=== PATIENT | male | born 1955 | race Caucasian/White ===

== ENCOUNTER 2017-05-17 13:40 | Inpatient (IN) | payer OTHER ==
[~2017-05-17] VITALS: Ht 177.8 cm; Wt 79.4 kg
[~2017-05-17 13:40] MED LIST: APIX5TAB PO; ENOX80DI8 SQ; KET10 PO; MONT4TAB PO; MULT1TAB64 PO; OMEP-218 PO; OMEP10CA38 PO; PER PO; WAR5 PO
[2017-05-17] MEDS ORDERED: cholesterol med (13:52)
[2017-05-17] MEDS ORDERED: bp med (13:52)
[2017-05-17] MEDS ORDERED: MONT10TA PO (13:52)
[2017-05-17] MEDS ORDERED: NS(*) 0.9% 1000 ML BAG 1,000 ML IV ONE (13:59)
[2017-05-17] MEDS ORDERED: ONDANSETRON 4 MG/2 ML VIAL IVP ONE (14:00)
[2017-05-17 14:14] LABS: PLATELET COUNT, AUTOMATED 236 K/uL (150-450)
[2017-05-17] MEDS ORDERED: IOPAMIDOL 76% 75 ML INFUS BTL 75 ML ONE (14:24)
[2017-05-17] MEDS ORDERED: NS 0.9% 50 ML VIAL 50 ML ONE (14:24)
--- NOTE | 2017-05-17 15:17 | RADIOLOGY IMAGING REPORT ---
FACILITY: [facility] PATIENT NAME: Juni Moreau : 1955 MR: [id number] V: [id number] EXAM DATE: ORDERING PHYSICIAN: ISIDRA VIVAR TECHNOLOGIST: Location: [facility] [place] Patient: Juni Moreau : 1955 Visit/Account:[id number] Date of Sevice: 05/17/2017 CT abdomen and pelvis with IV contrast Indication: Abdominal pain and bloating. Comparison: None available. . Technique: Axial CT images were obtained through the abdomen and pelvis during injection of nonioni c iodinated intravenous contrast. Reformatted coronal and sagittal images were also obtained. One of the following dose optimization techniques was utilized in the performance of this exam: Autom ated exposure control; adjustment of the mA and/or kV according to the patient's size; or use of an i terative reconstruction technique. Specific details can be referenced in the facility's radiology C T exam operational policy. Contrast: 75 ml of Isovue-370 IV contrast. Findings: Lower lung mehta: Left lower lobe does show a 3.5 mm pleural-based nodule. The right middle lobe zelaya s show 2 peripheral nodules measuring 3 mm. Mild scarring seen in right lower lobe. Lung bases otherw ise clear. Liver: No focal parenchymal abnormality of the liver. Biliary: Gallbladder appears unremarkable as well as the intra and extra hepatic biliary system. Pancreas: Normal appearance. Spleen: Normal appearance. Adrenal glands: Unremarkable. Kidneys / retroperitoneum: No evidence of nephrolithiasis or hydronephrosis. Subcentimeter hypodensit y in the inferior left kidney is too small characterize and statistically tiny cyst. No solid renal l esions. Bowel / peritoneum / mesenteries: There are multiple dilated loops of proximal small bowel without wa ll thickening or focal abnormality. There are transition the right mid abdomen without cause identifi ed. The distal small bowel is unremarkable. Sigmoid colon shows a few diverticula without pericolonic inflammation. The colon shows no other focal normality. The appendix is not visualized. Small hiatal hernia. The stomach is otherwise unremarkable. Small amount of free fluid seen in the pelvis. No fluid collections, free air or focal areas of infla mmation. Lymph node assessment: No pathologic adenopathy identified. Pelvic structures: Prostate is mildly enlarged causing impression to the urinary bladder. No other focal abnormality. The remaining pelvic structures visualized within normal limits. Vessels: No significant atherosclerotic calcifications seen throughout a nonaneurysmal abdominal aort a and branches. Musculoskeletal / Body wall: No acute or aggressive osseous abnormality. Mild degenerative changes sp ine. IMPRESSION: 1. Small bowel obstruction. The area of transition is in the right mid abdomen without cause identifi ed. Small amount of free fluid in the pelvis. 2. Sigmoid diverticulosis without radiographic indication diverticulitis. 3. Bilateral subcentimeter lung nodules. These are nonspecific and could be postinflammatory. Follow per Fleischner guidelines as described below. 4. other chronic findings as above. I called report to ISIDRA VIVAR at 05/17/2017 3:11 PM. FLEISCHNER SOCIETY FOLLOW-UP GUIDELINES FOR NEWLY DETECTED INCIDENTAL NODULES IN PERSONS 35 YEARS OF AGE OR OLDER. *THESE RECOMMENDATIONS DO NOT APPLY TO LUNG CANCER SCREENING, PATIENTS WITH IMMUNOSUPPRESSION , OR PA TIENTS WITH KNOWN PRIMARY MALIGNANCY. MULTIPLE SOLID NODULES If largest nodule size is less than 6 mm: Low risk patient - no follow up needed High risk patient - Optional CT at 12 months. If largest nodule size is 6-8 mm: Low risk patient - follow up CT at 3-6 months, then consider CT at 18-24 months if no change. High risk patient - follow up CT at 3-6 months, then CT at 18-24 months if no change. If largest nodule size is greater than 8 mm: Low risk patient - follow up CT at 3-6 months, then consider CT at 18-24 months High risk patient - follow up CT at 3-6 months, then at 18-24 months LOW RISK PATIENT: Minimal or absent history of tobacco use and of other known risk factors.HIGH RISK PATIENT: Tobacco use, family history of lung cancer, upper pulmonary lobe location of nodule, presenc e of emphysema, pulmonary fibrosis, older age. Lalo H, Leigh Ann DP, Naseem JM, et al. Guidelines for Management of Incidental Pulmonary Nodules Dete cted on CT Images: From the Fleischner Society 2017. Radiology. Report Dictated By: Darrian Green at 05/17/2017 3:02 PM Report E-Signed By: Darrian Green at 05/17/2017 3:11 PM WSN:[id number]
--- NOTE | 2017-05-17 15:20 | ER Report ---
History and Physical Time Seen By MD: 13:45 Hx. of Stated Complaint: pt states monday night started with n/v and slight diarrhea. Notes bloating HPI/ROS CHIEF COMPLAINT: Vomiting, abdominal pain HISTORY OF PRESENT ILLNESS: Patient is a 61-year-old male who presents the ED with complaint of vomiting and abdominal pain for the past 3 days. He states that initially he had some small amounts of diarrhea but has not had a stool for over 24 hours now. He states that he has not noted any black or bloody bowel movements or emesis. He states that he has previous abdominal surgeries of an appendectomy and inguinal hernia repair. Patient denies any fever. He states that he has noted that his abdomen feels more bloated now. REVIEW OF SYSTEMS: Constitutional: No fever, no chills. Eyes: No discharge. ENT: No sore throat. Cardiovascular: No chest pain, no palpitations. Respiratory: No cough, no shortness of breath. Gastrointestinal: See history of present illness. Genitourinary: No hematuria. Musculoskeletal: No back pain. Skin: No rashes. Neurological: No headache. Allergies: Coded Allergies: morphine (Verified Allergy, Intermediate, REDNESS, SEVERE NAUSEA, 05/17/17) Home Meds Active Scripts Apixaban (ELIQUIS) 5 Mg Tablet, 5 MG PO BID, #60 TAB 11 Refills Take 5 mg twice daily Prov:JESUS ALBERTO CRISTINA LOCKER ROOM CLERK-BC, ONC 07/19/16 Reported Medications [cholesterol med] No Conflict Check 05/17/17 Montelukast Sodium (SINGULAIR) 10 Mg Tablet, 1 TAB PO QDAY, TAB 05/17/17 [bp med] No Conflict Check 05/17/17 Discontinued Reported Medications Multivitamin (MULTI VITAMIN DAILY) 1 Each Tablet, 1 EACH PO DAILY 07/25/14 Omeprazole (PRILOSEC) 10 Mg Capsule., 10 MG PO PRN Y for GAS/HEARTBURN 06/13/14 Reviewed Nurses Notes: Yes Old Medical Records Reviewed: Yes Hx Smoking: No Smoking Status: Never Smoker Constitutional Vital Sign - Last 24 Hours 05/17/17 05/17/17 05/17/17 05/17/17 13:46 13:47 14:00 14:10 Temp 99.1 Pulse 66 61 Resp 22 B/P (MAP) 157/82 157/82 (107) 153/87 (109) Pulse Ox 99 98 O2 Delivery Room Air 05/17/17 05/17/17 14:30 15:00 B/P (MAP) 150/85 (106) 149/81 (103) Intake and Output 05/17/17 05/17/17 05/18/17 15:00 23:00 07:00 Intake Total 1000 ml Balance 1000 ml Physical Exam General Appearance: The patient is alert, has no immediate need for airway protection and no signs of toxicity. Patient appears to be no acute distress. Eyes: Pupils equal and round no pallor or injection. ENT, Mouth: Mucous membranes are moist. Respiratory: There are no retractions, lungs are clear to auscultation. Cardiovascular: Regular rate and rhythm. Gastrointestinal: There is right lower quadrant, suprapubic, left lower quadrant tenderness with palpation. Absent bowel sounds in all 4 quadrants. No rebound or guarding is present. Skin: Warm and dry, no rashes. Musculoskeletal: Neck is supple non tender. Extremities are nontender, nonswollen and have full range of motion. DIFFERENTIAL DIAGNOSIS: After history and physical exam differential diagnosis was considered for abdominal pain including but not limited to appendicitis, cholecystitis, gastritis and urinary tract infection. Medical Decision Making Data Points Result Diagram: 05/17/17 1401 05/17/17 1401 Laboratory Hematology Test 05/17/17 14:01 05/17/17 14:19 Red Blood Count 5.33 M/uL (4.00-5.60) Mean Corpuscular Volume 90.0 fL (80.0-96.0) Mean Corpuscular Hemoglobin 31.8 pg (26.0-33.0) Mean Corpuscular Hemoglobin Concent 35.4 g/dL (32.0-36.0) Red Cell Distribution Width 12.9 % (11.5-14.5) Mean Platelet Volume 7.5 fL (7.2-11.1) Neutrophils (%) (Auto) 76.4 % (39.4-72.5) Lymphocytes (%) (Auto) 11.6 % (17.6-49.6) Monocytes (%) (Auto) 10.3 % (4.1-12.4) Eosinophils (%) (Auto) 0.7 % (0.4-6.7) Basophils (%) (Auto) 1.0 % (0.3-1.4) Nucleated RBC Relative Count (auto) 0.0 /100WBC Neutrophils # (Auto) 6.8 K/uL (2.0-7.4) Lymphocytes # (Auto) 1.0 K/uL (1.3-3.6) Monocytes # (Auto) 0.9 K/uL (0.3-1.0) Eosinophils # (Auto) 0.1 K/uL (0.0-0.5) Basophils # (Auto) 0.1 K/uL (0.0-0.1) Nucleated RBC Absolute Count (auto) 0.00 K/uL Sodium Level 130 mmol/L (137-145) Potassium Level 3.6 mmol/L (3.5-5.0) Chloride Level 95 mmol/L (98-107) Carbon Dioxide Level 22 mmol/L (22-30) Blood Urea Nitrogen 13 mg/dl (9-21) Creatinine 1.00 mg/dl (0.66-1.25) Glomerular Filtration Rate Calc > 60.0 Random Glucose 121 mg/dl (75-110) Lactate 1.8 mmol/L (0.7-2.1) Calcium Level 9.8 mg/dl (8.4-10.2) Total Bilirubin 2.6 mg/dl (0.2-1.3) Aspartate Amino Transf (AST/SGOT) 21 U/L (0-35) Alanine Aminotransferase (ALT/SGPT) 40 U/L (0-56) Alkaline Phosphatase 75 U/L (0-126) Total Protein 7.3 gm/dl (6.3-8.2) Albumin 4.2 g/dl (3.5-5.0) Lipase 134 U/L (23-300) Urine Color Yellow Urine Clarity Clear Urine pH 8.0 pH (4.8-9.5) Urine Specific Costa 1.016 Urine Protein Negative mg/dL (NEGATIVE) Urine Glucose (UA) Negative mg/dL (NEGATIVE) Urine Ketones 80 mg/dL (NEGATIVE) Urine Blood Negative (NEGATIVE) Urine Nitrite Negative (NEGATIVE) Urine Bilirubin Negative (NEGATIVE) Urine Urobilinogen 4.0 mg/dL (0.2-1.9) Urine Leukocyte Esterase Negative (NEGATIVE) Urine RBC 1 /HPF (0-2/HPF) Urine WBC <1 /HPF (0-5/HPF) Urine Squamous Epithelial Cells None /LPF (</=FEW) Urine Bacteria Few /HPF (NONE-FEW) Urine Mucus None /HPF (NONE-FEW) Chemistry Test 05/17/17 14:01 05/17/17 14:19 White Blood Count 8.9 k/uL (4.5-11.0) Red Blood Count 5.33 M/uL (4.00-5.60) Hemoglobin 17.0 g/dL (14.0-18.0) Hematocrit 48.0 % (42.0-52.0) Mean Corpuscular Volume 90.0 fL (80.0-96.0) Mean Corpuscular Hemoglobin 31.8 pg (26.0-33.0) Mean Corpuscular Hemoglobin Concent 35.4 g/dL (32.0-36.0) Red Cell Distribution Width 12.9 % (11.5-14.5) Platelet Count 236 K/uL (150-450) Mean Platelet Volume 7.5 fL (7.2-11.1) Neutrophils (%) (Auto) 76.4 % (39.4-72.5) Lymphocytes (%) (Auto) 11.6 % (17.6-49.6) Monocytes (%) (Auto) 10.3 % (4.1-12.4) Eosinophils (%) (Auto) 0.7 % (0.4-6.7) Basophils (%) (Auto) 1.0 % (0.3-1.4) Nucleated RBC Relative Count (auto) 0.0 /100WBC Neutrophils # (Auto) 6.8 K/uL (2.0-7.4) Lymphocytes # (Auto) 1.0 K/uL (1.3-3.6) Monocytes # (Auto) 0.9 K/uL (0.3-1.0) Eosinophils # (Auto) 0.1 K/uL (0.0-0.5) Basophils # (Auto) 0.1 K/uL (0.0-0.1) Nucleated RBC Absolute Count (auto) 0.00 K/uL Glomerular Filtration Rate Calc > 60.0 Lactate 1.8 mmol/L (0.7-2.1) Calcium Level 9.8 mg/dl (8.4-10.2) Total Bilirubin 2.6 mg/dl (0.2-1.3) Aspartate Amino Transf (AST/SGOT) 21 U/L (0-35) Alanine Aminotransferase (ALT/SGPT) 40 U/L (0-56) Alkaline Phosphatase 75 U/L (0-126) Total Protein 7.3 gm/dl (6.3-8.2) Albumin 4.2 g/dl (3.5-5.0) Lipase 134 U/L (23-300) Urine Color Yellow Urine Clarity Clear Urine pH 8.0 pH (4.8-9.5) Urine Specific Costa 1.016 Urine Protein Negative mg/dL (NEGATIVE) Urine Glucose (UA) Negative mg/dL (NEGATIVE) Urine Ketones 80 mg/dL (NEGATIVE) Urine Blood Negative (NEGATIVE) Urine Nitrite Negative (NEGATIVE) Urine Bilirubin Negative (NEGATIVE) Urine Urobilinogen 4.0 mg/dL (0.2-1.9) Urine Leukocyte Esterase Negative (NEGATIVE) Urine RBC 1 /HPF (0-2/HPF) Urine WBC <1 /HPF (0-5/HPF) Urine Squamous Epithelial Cells None /LPF (</=FEW) Urine Bacteria Few /HPF (NONE-FEW) Urine Mucus None /HPF (NONE-FEW) Urinalysis Test 05/17/17 14:19 Urine Color Yellow Urine Clarity Clear Urine pH 8.0 pH (4.8-9.5) Urine Specific Costa 1.016 Urine Protein Negative mg/dL (NEGATIVE) Urine Glucose (UA) Negative mg/dL (NEGATIVE) Urine Ketones 80 mg/dL (NEGATIVE) Urine Blood Negative (NEGATIVE) Urine Nitrite Negative (NEGATIVE) Urine Bilirubin Negative (NEGATIVE) Urine Urobilinogen 4.0 mg/dL (0.2-1.9) Urine Leukocyte Esterase Negative (NEGATIVE) Urine RBC 1 /HPF (0-2/HPF) Urine WBC <1 /HPF (0-5/HPF) Urine Squamous Epithelial Cells None /LPF (</=FEW) Urine Bacteria Few /HPF (NONE-FEW) Urine Mucus None /HPF (NONE-FEW) EKG/Imaging Imaging CT Abdomen/Pelvis: IMPRESSION: 1. Small bowel obstruction. The area of transition is in the right mid abdomen without cause identified. Small amount of free fluid in the pelvis. 2. Sigmoid diverticulosis without radiographic indication diverticulitis. 3. Bilateral subcentimeter lung nodules. These are nonspecific and could be postinflammatory. Follow per Fleischner guidelines as described below. 4. other chronic findings as above. ED Course/Re-evaluation Clinical Indication for ER IV: Hydration ED Course We will obtain labs and CT imaging of abdomen/pelvis. Patient given 1 L normal saline bolus and 4 mg IV Zofran. 05/17/2017 3:37:28 pm - and imaging with patient. It appears that he does have an early small bowel obstruction of the right mid abdomen. He states that he is feeling better after the Zofran. Discussed patient with Dr. Chaudhry, surgeon, will accept patient under his care. Decision to Disposition Date: May 17, 2017 Decision to Disposition Time: 15:39 Depart Departure Latest Vital Signs Vital Signs Date Time Temp Pulse Resp B/P (MAP) Pulse Ox O2 Delivery O2 Flow Rate FiO2 05/17/17 15:00 149/81 (103) 05/17/17 14:10 61 98 05/17/17 13:46 99.1 22 Room Air Impression: Primary Impression: SBO (small bowel obstruction) Condition: Improved Disposition: Admitted from ER Referrals: MEGAN MCBRIDE (PCP) Consult Note: Dr. Conde, Surgery [facility],ISIDRA Ray PAAlexandrC May 17, 2017 15:20
[2017-05-17] MEDS ORDERED: FLUSH 10 ML SYR IVP PRN (15:25)
[2017-05-17] MEDS ORDERED: NALOXONE HCL 0.4 MG/ML VIAL IVP PRN (15:25)
[2017-05-17] MEDS ORDERED: ONDANSETRON 4 MG/2 ML VIAL IVP PRN (15:25)
[2017-05-17] MEDS ORDERED: PROMETHAZINE 25 MG/ML 1 ML AMP IVP PRN (15:25)
[2017-05-17] MEDS ORDERED: HYDROmorphone PCA 6 MG/30 ML IV PRN (15:25)
[2017-05-17] MEDS ORDERED: LORazepam 2 MG/ML VIAL IVP ONE (15:35)
--- NOTE | 2017-05-17 17:01 | RADIOLOGY IMAGING REPORT ---
[place] [facility] [place]: Juni Moreau : 1955 MR: [id number] V: [id number] EXAM DATE: ORDERING PHYSICIAN: ISIDRA VIVAR TECHNOLOGIST: [place] [facility] [place] Juni Moreau : 1955 Visit/Account:[id number] Date of Sevice: 05/17/2017 Exam type: CHEST SINGLE AP History: NG tuvbe placement Comparison: None. Findings: There has been placement of an NG tube. The tube appears looped within the gastric fundus and body. The distalmost portion of the tube is not well seen although appears to be along the superior aspect of the gastric fundus tThe lungs are free of consolidation. The cardiac silhouette is normal. IMPRESSION: 1. NG tube is looped within the gastric fundus and body. The distalmost portion is not ideally seen although appears to be along the superior aspect of the gastric fundus Report Dictated By: Tori Dickson MD at 05/17/2017 4:53 PM Report E-Signed By: Tori Dickson MD at 05/17/2017 4:55 PM WSN:[id number]
--- NOTE | 2017-05-17 17:01 | RADIOLOGY IMAGING REPORT ---
FACILITY: [facility] PATIENT NAME: Juni Moreau : 1955 MR: [id number] V: [id number] EXAM DATE: ORDERING PHYSICIAN: GEORGE PRASAD TECHNOLOGIST: Location: [facility] Patient: Juni Moreau : 1955 Visit/Account:[id number] Date of Sevice: 05/17/2017 Exam type: KUB SINGLE VIEW ABDOMEN History: SBO, NG tube placement Comparison: CT performed earlier in the day. Findings: There is air seen throughout numerous dilated loops of small bowel in the midabdomen contrast identif ied in the renal collecting systems and bladder from today's CT scan. The NG tube is not seen. Plea se see today's chest radiograph dictation IMPRESSION: 1. Image dilated loops of small bowel throughout the abdomen consistent with the history of small gunner wel obstruction NG tube is not identified. Please see today's chest radiograph dictation Report Dictated By: Tori Dickson MD at 05/17/2017 4:55 PM Report E-Signed By: Tori Dickson MD at 05/17/2017 4:57 PM WSN:[email or web address]
[2017-05-17] MEDS ORDERED: LISI30TA49 PO (17:09)
[2017-05-17] MEDS ORDERED: ATOR10TA65 PO (17:09)
[2017-05-17 17:12] VITALS: BP 151/92
[2017-05-17] MEDS: NS(*) 0.9% 1000 ML BAG 1,000 ML IV PRN (18:19)
[2017-05-17 18:47] VITALS: BP 151/90
[2017-05-17] MEDS ORDERED: BENZOCAINE/MENTHOL 1 EACH LOZG PO PRN (18:50)
--- NOTE | 2017-05-17 19:24 | Gen Surgery History & Physical ---
History of Present Illness Chief Complaint Abdominal pain, nausea, vomiting History of Present Illness 61-year-old gentleman presents to the emergency room with a three-day history of intermittent but worsening abdominal pain with nausea and vomiting and bloating. The pain started 3 days ago with nausea and vomiting that occurred after eating but then seemed to get better overnight only to recur the next day followed by some improvement and then today it seemed to get worse once again prompting him to come into the emergency department. His last flatus was yesterday morning but then he mentions he possibly had 2 episodes of flatus overnight last night. His last bowel movement was yesterday morning and was only a small liquid stool. No blood in his stool. He came into the emergency room where a CT scan was consistent with a small bowel obstruction. He's never had a small bowel obstruction before. He has had an open appendectomy as well as a right inguinal hernia repair but no other abdominal surgeries. He has never had these sort of symptoms prior to 3 days ago. History Problems: (1) History of DVT (deep vein thrombosis) Status: Chronic (2) Hypertension Status: Chronic (3) Hyperlipidemia Status: Chronic (4) Factor 5 Leiden mutation, heterozygous Status: Acute (5) H/O knee surgery Status: Acute (6) History of hernia repair Status: Acute (7) History of appendectomy Status: Acute (8) FH: lung cancer (9) Family history of blood clots (10) Family history of pulmonary embolism Home Meds Active Scripts Apixaban (ELIQUIS) 5 Mg Tablet, 5 MG PO BID, #60 TAB 11 Refills Take 5 mg twice daily Prov:JESUS ALBERTO CRISTINA OPERATIONS ADVISOR-BC, ONC 07/19/16 Reported Medications Atorvastatin Calcium (ATORVASTATIN CALCIUM) 10 Mg Tablet, 1 TAB PO QDAY, TAB 05/17/17 Lisinopril (LISINOPRIL) 30 Mg Tablet, 1 TAB PO QDAY 05/17/17 Discontinued Reported Medications Montelukast Sodium (SINGULAIR) 10 Mg Tablet, 1 TAB PO QDAY, TAB 05/17/17 Multivitamin (MULTI VITAMIN DAILY) 1 Each Tablet, 1 EACH PO DAILY 07/25/14 Omeprazole (PRILOSEC) 10 Mg Capsule.dr, 10 MG PO PRN Y for GAS/HEARTBURN 06/13/14 Allergies: Coded Allergies: morphine (Verified Allergy, Intermediate, REDNESS, SEVERE NAUSEA, 1/3/18) Patient History: Blood clots SISTER FH: lung cancer FATHER, Onset:44 MOTHER, Onset:68 BROTHER Pleural effusion Pulmonary embolism BROTHER Review of Systems All Systems Reviewed/Normal: Yes, Except as Noted Gastrointestinal: Nausea, Vomiting, Abdominal Pain Exam General Appearance: Alert, Awake, No Acute Distress, Afebrile Neuro: No Gross deficits Eyes: PERRLA GI: Other (soft mild periumbilical tenderness to palpation. Mildly distended. Somewhat tympanic to percussion. No peritoneal signs. No palpable mass or bulge. ) Extremities: Warm, Perfused Medical Decision Making Data Points Result Diagram: 05/17/17 1401 05/17/17 1401 Assessment and Plan Problems: (1) SBO (small bowel obstruction) Status: Acute Assessment & Plan: 05/17/17: Will admit to the hospital for further management of this small bowel obstruction. Given his previous history of abdominal surgeries this is likely due to intra-abdominal adhesions although he has not had a extensive surgical history so other etiologies must be considered. We'll start with conservative management including bowel rest and NG tube decompression with IV fluids for hydration. If he fails to improve after at least 48 hours of conservative management then we will need to consider surgical exploration. We will have him on therapeutic Lovenox, 80 mg subcutaneously twice a day, given his previous history of of DVT and his factor V Leiden mutation. We will need to stop this if surgery is contemplated. We'll use PPI for GI prophylaxis. To the patient the typical nature of small bowel obstructions and this plan in detail. His questions been answered. He seems agreeable with this plan. We will use apical lozenges and ice chips to help soothe his mouth and throat due to the NG tube causing irritation. Condition Stable Time Spent: < 30 min Venous Thromboembolism VTE Risk Physician Assess for VTE Risk: Yes Patient's VTE Risk: High VTE Diagnostic Test 2 Days Prior to Admit: No Antithrombotics Is Pt On Any Antithrombotics?: Yes GEORGE PRASAD MD May 17, 2017 19:24
[2017-05-17 23:31] VITALS: BP 157/94
[2017-05-18] MEDS: NS(*) 0.9% 1000 ML BAG 1,000 ML IV PRN ×2 (03:05→19:40)
[2017-05-18 03:07] VITALS: BP 161/86
--- NOTE | 2017-05-18 05:20 | General Surgery Progress Note ---
Subjective Progress Notes Subjective Feeling better. No flatus or BM. Not much pain. Main complaint is irritation from the NG tube. Physical Exam Vital Signs Date Time Temp Pulse Resp B/P (MAP) Pulse Ox O2 Delivery O2 Flow Rate FiO2 05/18/17 04:45 16 97 05/18/17 03:07 98.9 70 161/86 (111) Nasal Cannula 1.0 General Appearance: Alert, Awake, No Acute Distress, Afebrile GI: Soft and Non-Tender (Mild distension, less tympany) Extremities: Warm, Perfused Result Diagram: 05/17/17 1401 05/17/17 1401 Assessment and Plan Problems: (1) SBO (small bowel obstruction) Status: Acute Assessment & Plan: 05/17/17: Will admit to the hospital for further management of this small bowel obstruction. Given his previous history of abdominal surgeries this is likely due to intra-abdominal adhesions although he has not had a extensive surgical history so other etiologies must be considered. We'll start with conservative management including bowel rest and NG tube decompression with IV fluids for hydration. If he fails to improve after at least 48 hours of conservative management then we will need to consider surgical exploration. We will have him on therapeutic Lovenox, 80 mg subcutaneously twice a day, given his previous history of of DVT and his factor V Leiden mutation. We will need to stop this if surgery is contemplated. We'll use PPI for GI prophylaxis. To the patient the typical nature of small bowel obstructions and this plan in detail. His questions been answered. He seems agreeable with this plan. We will use apical lozenges and ice chips to help soothe his mouth and throat due to the NG tube causing irritation. 05/18/17: Still no flatus. KUB with diffusely dilated small bowel but I can see gas throughout colon, unlike on yesterday's KUB. NG isn't putting out too much , a couple hundred cc's in 24 hours. Continue bowel rest and NG tube decompression. Will await flatus and will recheck KUB in the morning. Condition Stable. Time Spent: < 30 min Exam Sepsis Risk: No Definite Risk GEORGE PRASAD MD May 18, 2017 05:19
--- NOTE | 2017-05-18 05:59 | RADIOLOGY IMAGING REPORT ---
FACILITY: [facility] PATIENT NAME: Juni Moreau : 1955 MR: [id number] V: [id number] EXAM DATE: ORDERING PHYSICIAN: GEORGE PRASAD TECHNOLOGIST: Location: [facility] Patient: Juni Moreau : 1955 Visit/Account:[id number] Date of Sevice: 05/18/2017 KUB SINGLE VIEW ABDOMEN HISTORY: SBO Single KUB. Comparison made to previous study of 05/17/2017 Dilated loops of small bowel throughout the abdomen compatible with small bowel obstruction. Degree o f visualization of the dilated air-filled small bowel loops increasing when compared to the previous study of 05/17/2017. Contrast within the bladder from previous contrast injection. Bony structures unremarkable IMPRESSION: 1. Small bowel obstruction. Report Dictated By: Chad Tucker MD at 05/18/2017 5:54 AM Report E-Signed By: Chad Tucker MD at 05/18/2017 5:55 AM WSN:[id number]
[2017-05-18 06:18] LABS: PLATELET COUNT, AUTOMATED 191 K/uL (150-450)
[2017-05-18 08:41] VITALS: Ht 177.8 cm; Wt 79.4 kg
[2017-05-18 08:44] VITALS: BP 139/82
[2017-05-18] MEDS: ENOXAPARIN 100 MG/ML SYR SC SCH ×2 (08:47→20:44)
[2017-05-18] MEDS: PANTOPRAZOLE SOD 40 MG IV VIAL IVP SCH (08:48)
[2017-05-18 12:00] VITALS: BP 155/92
[2017-05-18 15:30] VITALS: BP 135/83
[2017-05-18 19:09] VITALS: BP 151/87
[2017-05-18 23:15] VITALS: BP 156/87
[2017-05-19 03:28] VITALS: BP 153/85
[2017-05-19] MEDS: NS(*) 0.9% 1000 ML BAG 1,000 ML IV PRN (04:45)
[2017-05-19 06:23] LABS: PLATELET COUNT, AUTOMATED 188 K/uL (150-450)
[2017-05-19] MEDS ORDERED: NS(*) 0.9% 1000 ML BAG 1,000 ML IV PRN (07:03)
[2017-05-19 07:06] VITALS: BP 137/88
--- NOTE | 2017-05-19 07:08 | General Surgery Progress Note ---
Subjective Progress Notes Subjective No complaints. Passing lots of flatus. No abdominal pain or bloating. Feels hungry. Had headache overnight but now better. Physical Exam Vital Signs Date Time Temp Pulse Resp B/P (MAP) Pulse Ox O2 Delivery O2 Flow Rate FiO2 05/19/17 03:29 16 92 05/19/17 03:28 99.0 73 153/85 (107) Room Air 05/18/17 15:30 1.0 General Appearance: Alert, Awake, No Acute Distress, Afebrile GI: Soft and Non-Tender Extremities: Warm, Perfused Result Diagram: 05/19/17 0534 05/19/17 0534 Assessment and Plan Problems: (1) SBO (small bowel obstruction) Status: Acute Assessment & Plan: 05/17/17: Will admit to the hospital for further management of this small bowel obstruction. Given his previous history of abdominal surgeries this is likely due to intra-abdominal adhesions although he has not had a extensive surgical history so other etiologies must be considered. We'll start with conservative management including bowel rest and NG tube decompression with IV fluids for hydration. If he fails to improve after at least 48 hours of conservative management then we will need to consider surgical exploration. We will have him on therapeutic Lovenox, 80 mg subcutaneously twice a day, given his previous history of of DVT and his factor V Leiden mutation. We will need to stop this if surgery is contemplated. We'll use PPI for GI prophylaxis. To the patient the typical nature of small bowel obstructions and this plan in detail. His questions been answered. He seems agreeable with this plan. We will use apical lozenges and ice chips to help soothe his mouth and throat due to the NG tube causing irritation. 05/18/17: Still no flatus. KUB with diffusely dilated small bowel but I can see gas throughout colon, unlike on yesterday's KUB. NG isn't putting out too much , a couple hundred cc's in 24 hours. Continue bowel rest and NG tube decompression. Will await flatus and will recheck KUB in the morning. 05/19/17: Doing much better. Passing flatus and KUB reveals resolving SBO. Will d/c the NG and start a clear diet; patient advised to start slow. If tolerates, will advance diet later today and hope for d/c tomorrow morning. Will restart lisinopril. Continue therapeutic lovenox, will restart eliquis when regular diet restarted. (2) History of DVT (deep vein thrombosis) Status: Chronic Assessment & Plan: On 1mg/kg of therapeutic lovenox, will restart eliquis when tolerating diet and potential for surgery resolves. (3) Family history of blood clots (4) Factor 5 Leiden mutation, heterozygous Status: Acute Condition Stable. Time Spent: < 30 min Exam Sepsis Risk: No Definite Risk GEORGE PRAASD MD May 19, 2017 07:08
--- NOTE | 2017-05-19 08:00 | RADIOLOGY IMAGING REPORT ---
FAC[facility] PATIENT NAME: Juni Moreau : 1955 MR: [id number] V: [id number] EXAM DATE: ORDERING PHYSICIAN: GEORGE PRASAD TECHNOLOGIST: Location: [facility] [place] Patient: Juni Moreau : 1955 Visit/Account:[id number] Date of Sevice: 05/19/2017 KUB SINGLE VIEW ABDOMEN HISTORY: sbo KUB. Comparison made to previous study of 05/18/2017 FINDINGS: The degree of small bowel dilatation throughout the central abdomen has shown a marked improvement. S everal small bowel dilated loops measuring up to 3.5 cm remaining. NG tube coiled within the stomach. Decompressed mildly fecal filled colon. Impression: 1. Decreasing prominence and conspicuity of the dilated small bowel loops when compared to previous s tudy. Report Dictated By: Chad Tucker MD at 05/19/2017 7:55 AM Report E-Signed By: Chad Tucker MD at 05/19/2017 7:57 AM [id number]
[2017-05-19] MEDS: LISINOPRIL 10 MG TAB PO SCH (08:23)
[2017-05-19] MEDS: ENOXAPARIN 100 MG/ML SYR SC SCH ×2 (08:24→21:14)
[2017-05-19] MEDS: PANTOPRAZOLE SOD 40 MG IV VIAL IVP SCH (08:25)
[2017-05-19 11:21] VITALS: BP 130/79
--- NOTE | 2017-05-19 16:30 | Medical Nutrition Therapy ---
Nutrition Anthropometrics Height (Inches): 70.00 Height (Calculated Centimeters: 177.756980 Weight (Pounds): 175 Weight (Calculated Kilograms): 79.379 BMI Calculated: 25.11 Kavon Nutrition Score: Probably Inadequate Kavon Nutrition Risk Score: 19 Dietary Referral Nutrition Risk Factors: Nutrition Risk Comment: Physical Findings Physical Appearance: Overweight BMI 25-29 Skin Appearance Skin Appearance: Edema Edema Location Modifier: Edema Location: Type of Edema: Degree of Edema: Gastrointestinal Symptoms GI Symtoms: Nausea Tube Present: NG Bowel Sounds: Recent Bowel Pattern: Stool Characteristics: Nutritional Diagnosis Nutritional Risk Acuity 1: GI Obstruction Nutritional Risk Acuity 2: V/D > 3 Days Past Medical History: DVT, HTN, Hyperlipidemia Nutritional Acuity: 1-High Nutrition Diagnosis: Altered GI Function Nutrition Etiology: Physiological Causes Nutrition Problem/Etiology/Sym: Altered GI function r/t dx small bowel obstruction AEB N/V/D and CT scan. Energy Requirement: 2080 ([address] Jeor) Protein Requirement: 80 (1 g/kg) Fluid Requirement: 2400 (30 ml/kg) Diet Type: Clear Liquids Nutrition Intervention: Incr diet as tolerated Nutrition Monitoring & Eval Nutrition Goals: Eat 75-100% Meal RD Patient Assessment Time: [address] Assessment Type: RD Assessment Patient Nutrition Acuity: 1-High Follow Up Date: May 20, 2017 Nutritional Comment: 05/18 Pt admitted for small bowel obstruction. Reports N/V and some diarrhea since 05/14. Notable labs include Na 134. Total pro and alb WNL. Pt NPO/ice chips for bowel rest and NG tube decompression. Will continue to follow up and monitor as diet progresses. / Pt upgraded to clear liquid diet. Pt is improving and passing flatus. Abd xray reveals resolving SBO, per MD note. MD plans to advance diet as tolerated. Hct low and Na 135. No new alb or total pro available. Will continue to monitor as diet advances. DAVID FOX May 19, 2017 15:59
[2017-05-19 19:41] VITALS: BP 153/84
[2017-05-20 02:58] VITALS: BP 149/79
[2017-05-20 07:28] VITALS: BP 117/80
--- NOTE | 2017-05-20 08:50 | General Surgery Progress Note ---
Subjective Progress Notes Subjective When can I get out of here? Patient Complains of: Gastrointestinal: Bowel Movement Physical Exam Vital Signs Date Time Temp Pulse Resp B/P (MAP) Pulse Ox O2 Delivery O2 Flow Rate FiO2 05/20/17 07:37 95 Room Air 05/20/17 07:28 98.3 70 16 117/80 (92) 05/18/17 15:30 1.0 General Appearance: Alert, Awake Cardiovascular: Regular Rate and Rhythm Respiratory: Clear to Auscultation GI: Soft and Non-Tender, Other (Good bowel movement and ongoing flatus) Extremities: Soft and Non Tender, Warm, Pulses, Perfused, Edema, Other Result Diagram: 05/19/17 0534 05/19/1734 Assessment and Plan Problems: (1) SBO (small bowel obstruction) Status: Resolved Assessment & Plan: 05/17/17: Will admit to the hospital for further management of this small bowel obstruction. Given his previous history of abdominal surgeries this is likely due to intra-abdominal adhesions although he has not had a extensive surgical history so other etiologies must be considered. We'll start with conservative management including bowel rest and NG tube decompression with IV fluids for hydration. If he fails to improve after at least 48 hours of conservative management then we will need to consider surgical exploration. We will have him on therapeutic Lovenox, 80 mg subcutaneously twice a day, given his previous history of of DVT and his factor V Leiden mutation. We will need to stop this if surgery is contemplated. We'll use PPI for GI prophylaxis. To the patient the typical nature of small bowel obstructions and this plan in detail. His questions been answered. He seems agreeable with this plan. We will use apical lozenges and ice chips to help soothe his mouth and throat due to the NG tube causing irritation. 05/18/17: Still no flatus. KUB with diffusely dilated small bowel but I can see gas throughout colon, unlike on yesterday's KUB. NG isn't putting out too much , a couple hundred cc's in 24 hours. Continue bowel rest and NG tube decompression. Will await flatus and will recheck KUB in the morning. 05/19/17: Doing much better. Passing flatus and KUB reveals resolving SBO. Will d/c the NG and start a clear diet; patient advised to start slow. If tolerates, will advance diet later today and hope for d/c tomorrow morning. Will restart lisinopril. Continue therapeutic lovenox, will restart eliquis when regular diet restarted. 05/20/17: The patient is remarkably better after a substantial bowel movement and continues with ongoing flatus. He has tolerated a clear liquid diet and is no longer feeling distended. Discharge home. No follow up needed unless recurrence of symptoms. Soft diet. No additional pain medications. (2) History of DVT (deep vein thrombosis) Status: Chronic Assessment & Plan: On 1mg/kg of therapeutic lovenox, will restart eliquis when tolerating diet and potential for surgery resolves. Restart eliquis today (05/20/17) and continue at home as per his normal. (3) Family history of blood clots (4) Factor 5 Leiden mutation, heterozygous Status: Acute Time Spent: < 30 min Exam Sepsis Risk: No Definite Risk ESTEBAN FIGUEROA MD May 20, 2017 08:50
[2017-05-20] MEDS: LISINOPRIL 10 MG TAB PO SCH (08:54)
--- NOTE | 2017-05-20 09:07 | Short(Outpt) Discharge Summary ---
Discharge Summary Reason for Hosp/Final Diag: (1) SBO (small bowel obstruction) Status: Resolved Hospital Course & Plan: 05/17/17: Will admit to the hospital for further management of this small bowel obstruction. Given his previous history of abdominal surgeries this is likely due to intra-abdominal adhesions although he has not had a extensive surgical history so other etiologies must be considered. We'll start with conservative management including bowel rest and NG tube decompression with IV fluids for hydration. If he fails to improve after at least 48 hours of conservative management then we will need to consider surgical exploration. We will have him on therapeutic Lovenox, 80 mg subcutaneously twice a day, given his previous history of of DVT and his factor V Leiden mutation. We will need to stop this if surgery is contemplated. We'll use PPI for GI prophylaxis. To the patient the typical nature of small bowel obstructions and this plan in detail. His questions been answered. He seems agreeable with this plan. We will use apical lozenges and ice chips to help soothe his mouth and throat due to the NG tube causing irritation. 05/18/17: Still no flatus. KUB with diffusely dilated small bowel but I can see gas throughout colon, unlike on yesterday's KUB. NG isn't putting out too much , a couple hundred cc's in 24 hours. Continue bowel rest and NG tube decompression. Will await flatus and will recheck KUB in the morning. 05/19/17: Doing much better. Passing flatus and KUB reveals resolving SBO. Will d/c the NG and start a clear diet; patient advised to start slow. If tolerates, will advance diet later today and hope for d/c tomorrow morning. Will restart lisinopril. Continue therapeutic lovenox, will restart eliquis when regular diet restarted. 05/20/17: The patient is remarkably better after a substantial bowel movement and continues with ongoing flatus. He has tolerated a clear liquid diet and is no longer feeling distended. Discharge home. No follow up needed unless recurrence of symptoms. Soft diet. No additional pain medications. (2) History of DVT (deep vein thrombosis) Status: Chronic Hospital Course & Plan: On 1mg/kg of therapeutic lovenox, will restart eliquis when tolerating diet and potential for surgery resolves. Restart eliquis today (05/20/17) and continue at home as per his normal. (3) Family history of blood clots (4) Factor 5 Leiden mutation, heterozygous Status: Acute Departure Discharge to: Home, Self Care Discharge Instructions Home Meds Active Scripts Apixaban (ELIQUIS) 5 Mg Tablet, 5 MG PO BID, #60 TAB 11 Refills Take 5 mg twice daily Prov:JESUS ALBERTO [employer]RISTINA [employer], ONC 07/19/16 Reported Medications Atorvastatin Calcium (ATORVASTATIN CALCIUM) 10 Mg Tablet, 1 TAB PO QDAY, TAB 05/17/17 Lisinopril (LISINOPRIL) 30 Mg Tablet, 1 TAB PO QDAY 05/17/17 Discontinued Reported Medications Montelukast Sodium (SINGULAIR) 10 Mg Tablet, 1 TAB PO QDAY, TAB 05/17/17 Multivitamin (MULTI VITAMIN DAILY) 1 Each Tablet, 1 EACH PO DAILY 07/25/14 Omeprazole (PRILOSEC) 10 Mg Capsule.dr, 10 MG PO PRN Y for GAS/HEARTBURN 06/13/14 Diet: Regular Activity: As Tolerated Copies to: GEORGE PRASAD MD, SALLY A MD May 20, 2017 09:07
== END 2017-05-20 10:05 | disposition home or self-care (01) | DRG 389 ==
LOC: ER 13:57 → MED 15:38
PROVIDERS: ADMIT Surgery; ATTEND Surgery
DX: K56.50 Intestinal adhesions [bands], unspecified as to partial versus complete obstruction (principal); D68.51 Activated protein C resistance; I10 Essential (primary) hypertension; E78.5 Hyperlipidemia, unspecified; Z79.01 Long term (current) use of anticoagulants; Z88.5 Allergy status to narcotic agent; Z80.1 Family history of malignant neoplasm of trachea, bronchus and lung; Z83.2 Family history of diseases of the blood and blood-forming organs and certain disorders involving the immune mechanism; Z90.89 Acquired absence of other organs; Z98.890 Other specified postprocedural states; Z96.653 Presence of artificial knee joint, bilateral; Z86.718 Personal history of other venous thrombosis and embolism
CPT/HCPCS: 36415; 71045; 74018; 74177; 81001; 82040; 82247; 82310; 82374; 82435; 82565; 82947; 83605; 83690; 84075; 84132; 84155; 84295; 84450; 84460; 84520; 85025; 96361; 96374; 96375; 99285; C9113; J1170; J1650; J2060; J2405; J2550; J7030; J7050; Q9967

== ENCOUNTER 2017-09-08 12:52 | Outpatient (RCR) | payer OTHER ==
[2017-05-18 08:41] VITALS: Wt 83.8 kg
[~2017-09-08 12:52] MED LIST changes: +ATOR10TA65 PO; +FLUT16SP19; +LISI30TA49 PO; +MONT10TA PO; +bp med; +cholesterol med
[2017-09-08 13:04] VITALS: BP 124/76
--- NOTE | 2017-09-08 18:22 | ONCOLOGY FOLLOW UP NOTE ---
EVENT DATE: September 08, 2017 DIAGNOSES 1. Recurrent deep vein thrombosis of the left lower extremity. 2. Swelling of the left knee and left lower extremity. 3. Heterozygous state for factor V Leiden mutation. CHIEF COMPLAINT The patient is here today for followup of his hypercoagulable state with recurrent DVT. HEMATOLOGY HISTORY The patient is a 61-year-old male who had recurrent history of blood clotting. He had his first episode in the right lower extremity with superficial thrombophlebitis about nine years ago. He had his first episode of DVT of the left lower extremity in 2005 after a left knee arthroscopic surgery for a fracture. He developed a second episode of DVT in the left lower extremity in early 2010 after left inguinal hernia repair surgery. Then he developed his third episode of DVT in the left lower extremity on May 15, 2014 after a local injection of the left knee. The patient was maintained on Eliquis since then. On more recent history, the patient reports that he has had injections bilateral knees more recently and on Eliquis denies any episodes of DVT or pain that might associate developing DVT. HISTORY OF PRESENT ILLNESS Patient is here today for followup of his hypercoagulable state with recurrent DVT. He is doing very well currently. He denies any blood clotting in the last year. He is complaining only of some dry cough lately. PAST MEDICAL HISTORY 1. Recurrent DVT of the left lower extremity. 2. Superficial thrombophlebitis, right lower extremity. PAST SURGICAL HISTORY 1. Left knee surgery x2 for meniscus tear. 2. Right knee surgery for meniscus tear. 3. Left hernia repair. 4. Appendectomy. 5. Removal of melanoma of the scalp. 6. Surgery with plate placement for broken right arm. 7. Partial right knee replacement done on July 19, 2016. FAMILY HISTORY Mother had lung cancer. Father had lung cancer. Both parents were smokers. He had a brother with pulmonary embolus and his son, who was patient's nephew, had blood clotting, and both were tested positive for factor V Leiden mutation. His brother is heterozygous state for factor V Leiden mutation, while his son , who is the nephew of the patient, was homozygous for factor V Leiden mutation. SOCIAL HISTORY The patient is . He does not have children. 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 He denies any abuse of tobacco or drugs. He does drink a beer socially. CURRENT MEDICATIONS Eliquis twice daily. ALLERGIES No known drug allergies. REVIEW OF SYSTEMS CONSTITUTIONAL: No appetite or weight change. No fevers, chills or sweating. No recent infection. HEENT: No hearing problems or tinnitus. NOSE: No nasal discharge or epistaxis. THROAT: No sore throat or mouth ulcers. EYES: No diplopia or visual changes. RESPIRATORY: Denies shortness of breath. Patient has dry cough. No expectoration or hemoptysis. CARDIOVASCULAR: No chest pain or orthopnea. No edema. No palpitations. GASTROINTESTINAL: Denies nausea, vomiting, diarrhea or constipation. No abdominal pain, jaundice. No rectal bleeding. GENITOURINARY: No hematuria or dysuria. MUSCULOSKELETAL: The patient has pain in the right knee with stiffness after his recent surgery. NEUROLOGIC: No numbness or tingling in the hands and feet. No headaches or convulsions. HEMATOLOGIC/LYMPHATIC: He bruises easily. No enlarged lymph nodes. SKIN: No skin rash or lumps. PSYCHIATRIC: No anxiety or depression. PHYSICAL EXAMINATION GENERAL: Looks stable. Well-developed, well-nourished in no acute distress. VITAL SIGNS: Blood pressure 124/76, pulse 83 per minute, respirations 16 per minute, temperature 99.6, pulse ox. 97% on room air. HEENT: Head is atraumatic. NECK: Supple. No cervical lymphadenopathy. LUNGS: Clear to auscultation bilaterally. HEART: Regular rate and rhythm. No murmurs, clicks, rubs or gallops. ABDOMEN: Soft and nontender. No hepatosplenomegaly. Bowel sounds are normoactive. EXTREMITIES: There is mild swelling of the right knee. LYMPHATICS: No peripheral lymphadenopathy. NEUROLOGIC: He is conscious, alert and oriented x3. PSYCHIATRIC: Mood and affect appear normal. SKIN: No skin rashes, bruises or purpuric eruptions. DIAGNOSTIC DATA CBC in May 2017 showed white count 8.1, hemoglobin 14.4, hematocrit 41.4, hematocrit 41.4, platelets 188,000. ASSESSMENT 1. Recurrent deep vein thrombosis of the left lower extremity, first episode in 2005 after left arthroscopic knee surgery with second episode in 2010 after left inguinal hernia repair surgery. The third episode was on May 18, 2014 after injection locally in the left knee. The patient tested positive for heterozygous state for factor V Leiden mutation. He had a family history of the same mutation. He also had superficial thrombophlebitis of the right lower extremity around eight to 10 years ago. Given the recurrent nature of his DVT of the left lower extremity with heterozygous state for factor V Leiden mutation , patient is a candidate for lifelong anticoagulation. He is currently on Eliquis 5 mg twice daily and he is doing very well. No complications from the drug and no blood clotting for the last year. I am planning to continue Eliquis 5 mg daily. I will see him again in a year from now. 2. History of right partial knee replacement done July 2016. PLAN 1. Eliquis 5 mg twice daily. 2. Patient to continue anticoagulation lifelong. 3. The patient to return in one year. 4. The patient to contact us for any new concern or complaints. ALDEN
== END 2017-11-02 14:19 | disposition home or self-care (01) ==
LOC: ONC 12:52
PROVIDERS: ATTEND Internal Medicine Hematology
DX: I82.402 Acute embolism and thrombosis of unspecified deep veins of left lower extremity (principal); D68.51 Activated protein C resistance; Z79.01 Long term (current) use of anticoagulants
CPT/HCPCS: 99212

== ENCOUNTER 2018-08-17 12:00 | Outpatient (RCR) | payer OTHER ==
[2017-05-18 08:41] VITALS: Wt 83.4 kg
[2018-08-17 12:08] VITALS: BP 117/75
--- NOTE | 2018-08-17 15:46 | EL-[facility] ONCOLOGY NOTE ---
EVENT DATE: August 17, 2018 DIAGNOSES 1. Recurrent deep vein thrombosis of the left lower extremity. 2. Swelling of the left knee and left lower extremity. 3. Heterozygous state for factor V Leiden mutation. CHIEF COMPLAINT Patient is here today for followup of his hypercoagulable state with recurrent DVT. HEMATOLOGY HISTORY The patient is a 63-year-old male who had recurrent history of blood clotting. He had his first episode in the right lower extremity with superficial thrombophlebitis about nine years ago. He had his first episode of DVT of the left lower extremity in 2005 after a left knee arthroscopic surgery for a fracture. He developed a second episode of DVT in the left lower extremity in early 2010 after left inguinal hernia repair surgery. Then, he developed his third episode of DVT in the left lower extremity on May 15, 2014, after a local injection of the left knee. The patient was maintained on Eliquis since then. On more recent history, the patient reports that he has had injections in bilateral knees more recently, and on Eliquis, denies any episodes of DVT or pain that might associate with developing DVT. HISTORY OF PRESENT ILLNESS Patient is here today for followup of his hypercoagulable state with recurrent DVT. He is doing very well currently. Apart from having easy bruising, most probably due to his blood thinner, patient does not have any other complaint. PAST MEDICAL HISTORY 1. Recurrent DVT of the left lower extremity. 2. Superficial thrombophlebitis, right lower extremity. PAST SURGICAL HISTORY 1. Left knee surgery times two for meniscus tear. 2. Right knee surgery for meniscus tear. 3. Left hernia repair. 4. Appendectomy. 5. Removal of melanoma of the scalp. 6. Surgery with plate placement for broken right arm. 7. Partial right knee replacement done on July 19, 2016. FAMILY HISTORY Mother had lung cancer. Father had lung cancer. Both parents were smokers. He had a brother with pulmonary embolus, and his son, who was patient's nephew, had blood clotting, and both were tested positive for factor V Leiden mutation. His brother is heterozygous state for factor V Leiden mutation, while his son, who is the nephew of the patient, was homozygous for factor V Leiden mutation. SOCIAL HISTORY The patient is . He does not have children. 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 He denies any abuse of tobacco or drugs. He does drink a beer socially. CURRENT MEDICATIONS Eliquis twice daily. ALLERGIES No known drug allergies. REVIEW OF SYSTEMS CONSTITUTIONAL: No appetite or weight change. No fever, chills or sweating. No recent infection. HEENT: Ears: No tinnitus or hearing problem. Nose: No nasal discharge or epistaxis. Throat: No sore throat or mouth ulcers. Eyes: No diplopia or visual changes. RESPIRATORY: No shortness of breath. No cough, expectoration, or hemoptysis. CARDIOVASCULAR: No chest pain, orthopnea, or paroxysmal nocturnal dyspnea (PND). No edema. No palpitations. GASTROINTESTINAL: No nausea or vomiting. No diarrhea or constipation. No change in bowel movements. No heartburn or swallowing difficulties. No abdominal pain. No jaundice. No hematemesis, melena, or rectal bleeding. GENITOURINARY: No hematuria or dysuria. MUSCULOSKELETAL: No pain in the muscles, joints, or bones. NEUROLOGIC: No tingling or numbness in the hands or feet. No headaches or convulsions. HEMATOLOGIC/LYMPHATIC: No bleeding. He has occasional bruising. No weakness or fatigue. No enlarged lymph nodes. SKIN: No skin rash or lumps. PSYCHIATRIC: No anxiety or depression. PHYSICAL EXAMINATION GENERAL: Looks stable. Well developed, well nourished, and in no acute distress. VITAL SIGNS: Blood pressure 117/75, pulse 57 per minute, respirations 16 per minute, temperature 98, pulse ox 94% on room air. HEENT: Head: Atraumatic. No sinus tenderness to palpation. Eyes: No icterus or conjunctivitis. Mouth and Throat: No oral thrush or mucositis. NECK: Supple. No cervical or supraclavicular lymphadenopathy. LUNGS: Clear to auscultation and percussion bilaterally. HEART: Regular rate and rhythm. No gallops, murmurs, clicks, or rubs. ABDOMEN: Soft and lax. No tenderness. No hepatosplenomegaly. No masses. EXTREMITIES: No cyanosis, clubbing, or edema. LYMPHATICS: No peripheral lymphadenopathy. NEUROLOGIC: Conscious, alert, and oriented times three. No focal motor or sensory deficits. PSYCHIATRIC: Mood and affect appear normal. SKIN: No skin rash, bruise, or purpuric eruption. ASSESSMENT 1. Recurrent deep vein thrombosis of the left lower extremity, first episode in 2005 after left arthroscopic knee surgery, with second episode in 2010 after left inguinal hernia repair surgery. His third episode was on May 18, 2014, after injection locally in the left knee. The patient tested positive for heterozygous state for factor V Leiden mutation. He has a family history of the same mutation. He also had superficial thrombophlebitis of the right lower extremity around eight to 10 years ago. Given the recurrent nature of his deep venous thrombosis of the left lower extremity with heterozygous state for factor V Leiden mutation, patient is a candidate for life-long anticoagulation. He is currently on Eliquis 5 mg twice daily, and he is tolerating the treatment very well without any complications except for mild easy bruising. I am planning to see him in a year, and I am planning to refill his Eliquis drug. 2. History of right partial knee replacement done July 2016. PLAN 1. Eliquis 5 mg twice daily. 2. Patient to return in one year for followup. 3. Patient is a candidate for life-long anticoagulation. 4. Patient to contact us for any new concerns or complaints. ALDEN
== END 2018-09-05 09:02 | disposition home or self-care (01) ==
LOC: ONC 12:00
PROVIDERS: ATTEND Internal Medicine Hematology
DX: Z86.718 Personal history of other venous thrombosis and embolism (principal); D68.51 Activated protein C resistance; Z79.01 Long term (current) use of anticoagulants
CPT/HCPCS: 99212

== ENCOUNTER → 2018-10-17 | Outpatient (CLI) | payer OTHER ==
[2017-05-18 08:41] VITALS: BMI 25.1
== END ==
LOC: AUD 09:00
PROVIDERS: ATTEND Physician Assistant
DX: H91.90 Unspecified hearing loss, unspecified ear (principal)
CPT/HCPCS: 92557; 92570